=== PATIENT | male | born 1950 | race Caucasian/White ===

== ENCOUNTER 2024-11-16 07:33 | Outpatient (OUT) | payer MEDICARE, SELFPAY ==
--- NOTE | 2024-11-16 07:51 | ECG_ITS ---
[facility] Test Date: 2024-11-16 Pat Name: JUAN AYALA Department: Room: - Gender: Male [place]: : 1950 Requested By: TIMOTHY SMITH Order Number: [id number] Reading MD: JED MENDOZA Measurements Intervals [place] Rate: 54 P: 33 AR: 252 QRS: -31 QRSD: 154 T: -15 QT: 445 QTc: 423 Interpretive Statements SINUS BRADYCARDIA WITH FIRST DEGREE AV BLOCK WITH SINUS ARRHYTHMIA MARKED LEFT AXIS DEVIATION [QRS AXIS < -30] RIGHT BUNDLE BRANCH BLOCK [120+ ms QRS DURATION, UPRIGHT V1, 40+ ms S IN I/aVL/V4/V5/V6] No previous ECG available for comparison Electronically Signed On 11-16-2024 16:01:30 EDT by JED MENDOZA
--- NOTE | 2024-11-16 08:50 | PM.PRESUREVA ---
History of Present Illness History of Present Illness Chief complaint: Right Kidney Stone Narrative: Patient presents for presurgical testing. Please see HPI from Dr. Gaitan dated November 14, 2024. Review of Systems ROS Narrative Please see ROS from Dr. Gaitan dated November 14, 2024. [facility] Medical History (Updated 11/16/24 @ 08:38 by Breanne Ray NP) MILDRED on CPAP ?G47.33 - Obstructive sleep apnea (adult) (pediatric) (ICD-10) Low iron ?E61.1 - Iron deficiency (ICD-10) Anemia ?D64.9 - Anemia, unspecified (ICD-10) Sleep apnea ?G47.30 - Sleep apnea, unspecified (ICD-10) Hypothyroidism ?E03.9 - Hypothyroidism, unspecified (ICD-10) H/O reduction of nasal fracture ?Z98.890 - Other specified postprocedural states (ICD-10) ?Z87.81 - Personal history of (healed) traumatic fracture (ICD-10) Nasal fracture ?S02.2XXA - Fracture of nasal bones, initial encounter for closed fracture (ICD-10) Thyroid disease ?E07.9 - Disorder of thyroid, unspecified (ICD-10) Hypertension ?I10 - Essential (primary) hypertension (ICD-10) Hyperlipidemia ?E78.5 - Hyperlipidemia, unspecified (ICD-10) Prostate cancer ?C61 - Malignant neoplasm of prostate (ICD-10) Diabetes ?E11.9 - Type 2 diabetes mellitus without complications (ICD-10) BPH with obstruction/lower urinary tract symptoms ?N40.1 - Benign prostatic hyperplasia with lower urinary tract symptoms (ICD-10) ?N13.8 - Other obstructive and reflux uropathy (ICD-10) Right kidney stone ?N20.0 - Calculus of kidney (ICD-10) Surgical History (Updated 11/16/24 @ 08:38 by Breanne Ray NP) History of colonoscopy ?Z98.890 - Other specified postprocedural states (ICD-10) History of tonsillectomy ?Z90.89 - Acquired absence of other organs (ICD-10) H/O inguinal hernia repair ?Z98.890 - Other specified postprocedural states (ICD-10) ?Z87.19 - Personal history of other diseases of the digestive system (ICD-10) H/O prostatectomy ?Z90.79 - Acquired absence of other genital organ(s) (ICD-10) H/O lithotripsy ?Z98.890 - Other specified postprocedural states (ICD-10) H/O cystoscopy ?Z98.890 - Other specified postprocedural states (ICD-10) Family History (Updated 11/16/24 @ 08:34 by Breanne Ray NP) Other Family history of cancer Family history of diabetes mellitus Family history of heart disease Family history of hypertension Family history of myocardial infarction Social History (Updated 11/16/24 @ 08:48 by Breanne Ray NP) Within the past year, how often did you have a drink containing alcohol: never Score interpretation: A score less than 4 is consistent with normal alcohol consumption. Smoking status: Never smoker Non-prescribed substance use: denies use Previous occupational history: Retired Highest level of school completed/degree received: Bachelor's degree Meds Home Medications and Allergies Home Medications ?Medication ?Instructions ?Recorded ?Confirmed ?Type amlodipine 5 mg tablet 5 mg PO DAILY 11/16/24 11/16/24 History cholecalciferol (vit D3) 137.5 mcg 1 tab PO DAILY 11/16/24 11/16/24 History (5,500 unit)-vit K2 200 mcg tablet (DosoKap) hydrochlorothiazide 12.5 mg capsule 12.5 mg PO DAILY 11/16/24 11/16/24 History levothyroxine 75 mcg tablet 75 mcg PO DAILY 11/16/24 11/16/24 History (Synthroid) potassium citrate 15 mEq (1,620 1,620 mg PO BID 11/16/24 11/16/24 History mg) tablet,extended release tirzepatide 7.5 mg/0.5 mL 7.5 mg subcut QWEEK 11/16/24 11/16/24 History subcutaneous pen injector (Mounjaro) vitamin B complex 1 tab PO DAILY 11/16/24 11/16/24 History Allergies Allergy/AdvReac Type Severity Reaction Status Date / Time Sulfa (Sulfonamide Allergy Unknown Verified 11/16/24 08:30 Antibiotics) Exam Narrative Exam Narrative: Constitutional: Awake, alert, comfortable, well-appearing, nontoxic, interactive, vital signs as charted Head: Normocephalic, atraumatic Neck: Supple, normal appearance, normal range of motion, no meningeal signs, no lymphadenopathy Respiratory: No respiratory distress, breath sounds clear Cardiovascular: Regular rate and rhythm, strong and regular heart tones Abdomen: Nontender, normal bowel sounds, soft, no CVA tenderness Musculoskeletal: Normal gait, no swelling or edema Skin: No rashes or induration, no lesions, only visible skin inspected Neuro: No neurological deficits, normal sensation Psychiatric: Oriented ?3, normal affect Assessment and Plan Assessment and Plan (1) Right kidney stone: Plan Right ESWL scheduled with Dr. Gaitan November 24, 2024.
[2024-11-16 09:03] LABS: Hematocrit 41.7 % (42.0-54.0); Hemoglobin 15.6 g/dL (14.0-18.0); Immature Granulocytes Abs Auto 0.01 10^3/uL (0.00-0.03); Immature Granulocytes Pct Auto 0.2 % (0.0-0.5); Lymphocytes Absolute Auto 1.3 10^3/uL (1.2-3.8); Mean Corpuscular HGB Conc 37.4 g/dL (29.9-35.2); Mean Corpuscular Hemoglobin 35.0 pg (25.9-34.0); Mean Corpuscular Volume 93.5 fL (80.0-94.0); Platelet Count 104 10^3/uL (150-450); Red Blood Count 4.46 10^6/uL (4.70-6.10); White Blood Count 4.5 10^3/uL (4.0-11.0)
[2024-11-16 09:12] LABS: Anion Gap 13.7; Blood Urea Nitrogen 16.0 mg/dL (7.0-18.0); Calcium 9.5 mg/dL (8.5-10.1); Carbon Dioxide 26.9 mmol/L (21.0-32.0); Chloride 101 mmol/L (98-107); Estimated GFR (African America >60 (>=60 mL/min/1.73m^2); Estimated GFR (Non-African Ame >60 (>=60 mL/min/1.73m^2); Glucose 115 mg/dL (74-106); Potassium 3.6 mmol/L (3.5-5.1); Sodium 138 mmol/L (136-145)
[2024-11-16 09:20] LABS: INR 1.03; Partial Thromboplastin Time 28.8 sec (22.3-36.2); Prothrombin Time 10.9 sec (9.0-11.6)
== END 2024-11-16 07:34 | disposition home or self-care (01) ==
LOC: PST 07:34
PROVIDERS: Family Provider Family Medicine; Visit Provider Urology
DX: Z01.810 Encounter for preprocedural cardiovascular examination (principal); Z01.812 Encounter for preprocedural laboratory examination; Z01.818 Encounter for other preprocedural examination; N20.0 Calculus of kidney
CPT/HCPCS: 80048; 85025; 85610; 85730; 93005; G0463

== ENCOUNTER 2024-12-01 09:29 | Day surgery (SDC) | payer MEDICARE, SELFPAY ==
[2024-11-16 08:45] VITALS: BP 145/86; PULSE 65; TEMP 36.5; O2SAT 95; BMI 34.2
--- OUTSIDE RECORDS SUMMARY | 2024-11-28 16:00 | XMS_ITS | Encounter Summary ---
Author Organization [facility] Address [address] [place] [address] Care Team Providers Care Tool Specialist Name Role Phone Artur Gaitan MD Unavailable [phone] Source Comments In the event this information is protected by the Federal Confidentiality of Alcohol and Drug AbusePatient Records regulations: The Federal rules restrict any use of the information to criminally investigate or prosecute any alcohol or drug abuse patient.[facility] Encounter Details Date Type Department Care Team (Latest Contact Info) Description 11/28/2024 4:00 PM EDT Visit (SP) Office Hematology/Oncolog y [facility] [place] [address] Freddy Felipe MD [address] [place] [address] Thrombocytopenia (Primary Dx) Social History Tobacco Use Types Packs/Day Years Used Date Smoking Tobacco: Never Assessed Area Deprivation Index Answer Date Frank rded National Score (1-100), lower number is lower ri sk 63 11/28/2024 State Score (1-10), lower number is lower risk 4 11/28/2024 Data from: https://www.neighborhoodatlas.medicine.[facility].edu/. Last address used for calculation [address] 11/28/2024 Sex and Gender Information Value Date Recorded Sex Assigned at Not on file Legal Sex Male 3:34 PM EDT Gender Identity Not on file Sexual Orientation Not on file documented as of this encounter Last Filed Vital Signs Vital Sign Reading Time Taken Comments Blood Pressure 176/88 11/28/2024 3:37 PM EDT Pulse 64 11/28/2024 3:37 PM EDT Temperature 36.5 C (97.7 F) 11/28/2024 3:37 PM EDT Respiratory Rate 16 11/28/2024 3:37 PM EDT Oxygen Saturation 97% 11/28/2024 3:37 PM EDT Inhaled Oxygen Concentration - - Weight 96.4 kg (212 lb 8.4 oz) 11/28/2024 3:37 P M EDT Height - - Body Mass Index - - documented in this encounter Patient Instructions * Patient Instructions* Freddy Felipe MD - 11/28/2024 4:20 PM EDT Ordered blood work F/u in 3 months documented in this encounter Progress Notes * Freddy Felipe MD - 11/28/2024 4:00 PM EDT PATIENT NAME: Kamlesh Holman CLINIC NO.: [id number] ATTENDING PHYSICIAN: Freddy Felipe MD DATE OF SERVICE: November 28, [address] Artur Gaitan [address] [facility] [address] thank you for referring Kamlesh Holman for an opinion regarding Thrombocytopenia . CHIEF COMPLAINT: Thrombocytopenia HPI: Kamlesh Holman is a 73 year old year old male with PMH of prostate cancer s/p prostatectomy,HTN, DM, hypothyroidism, nephrolithiasis, referred to us for thrombocytopenia. No smoking No alcohol. No bleeding or bruising. Lives at home with . 4 children . Worked as a teacher. Doing well No major complaints. Current Outpatient Medications Medication Sig MOUNJARO 7.5 mg/0.5 mL pen injector INJECT 7.5 MG UNDER THE SKIN ONCE WEEKLY MYRBETRIQ 50 mg Tb24 Take 50 mg by mouth once daily. levothyroxine (SYNTHROID) 75 mcg tablet Take 75 mcg by mouth. PRO FE 180 mg iron cap TAKE 1 CAPSULE BY MOUTH EVERY DAY , INCREASE TO TWICE DAILY IF TOLERATING hydroCHLOROthiazide 12.5 mg tablet Take 12.5 mg by mouth. cyanocobalamin (VITAMIN B-12) 1,000 mcg tab Take 1,000 mcg by mouth. amLODIPine (NORVASC) 5 mg tablet Take 5 mg by mouth. Potassium Citrate-Citric Acid 1,100-334 mg/5 mL solution Take by mouth. cholecalciferol, vitD3,/vit K2 (DOSOQUIN ORAL) Take by mouth. Ascorbic Acid (VITAMIN C) 1,000 mg tablet Take 1,000 mg by mouth once daily. naltrexone 4.5 mg cap Take by mouth. No current facility-administered medications for this visit. ALLERGIES Not on File No past medical history on file. No past surgical history on file. No family history on file. SOCIAL HISTORY[1] REVIEW OF SYSTEMS GENERAL: No weight loss, malaise or fevers. No night sweats. HEENT: Negative for headaches, No changes in hearing or vision, no nose bleeds or other nasal problems. RESPIRATORY: Negative for cough, wheezing and shortness of breath CARDIOVASCULAR: Negative for chest pain, leg swelling and palpitations GI: Negative for abdominal discomfort, blood in stools or black stools and change in bowel habits : Negative for dysuria, frequency and incontinence MUSCULOSKELETAL: Negative for joint pain or swelling, back pain, and muscle pain. SKIN: Negative for lesions, rash, and itching. HEMATOLOGY/LYMPHOLOGY Negative for prolonged bleeding, bruising easily, and swollen nodes. NEURO: Negative for numbness or tingling of hands/feet. No weakness. PHYSICAL EXAMINATION: BP 176/88 Pulse 64 Temp 36.5 ??C (97.7 ??F) (Temporal) Resp 16 Wt 96.4 kg (212 lb 8.4 oz) SpO2 97% There were no vitals taken for this visit. No data found for this vital: Wt General appearance:ECOG PERFORMANCE STATUS: 0- Fully active, able to carry on all pre-disease performance w/o restriction. Patient in NAD. Skin: Skin color, texture, turgor normal. No rashes or lesions. Eyes: Anicteric sclera. Pupils are equally round and reactive to light. Extraocular movements are intact. Breast: No palpable breast masses. No nipple change or discharge. Lymph Nodes: No cervical, supraclavicular, axillary or inguinal adenopathy. Oropharynx: Lips, mucosa, and tongue normal. Back: No pain to percussion. Negative SLR test Lungs clear to auscultation, No wheezing or rhonchi Heart: RRR without murmur, gallop, or rubs. Abdomen soft, non-tender. No masses, organomegaly Extremities: No deformities. No edema Neuro: Gait and speech normal. Reflexes normal and symmetric. Muscular strength intact. Sensation grossly intact. Rectal: Deferred : Deferred LABS: No results found for: GLUC , K , NA , CHLOR , CO2 , CREAT , BUN , ANION , CA , TPROT , ALB , TBILI , ALKPHOS , AST , ALT No results found for: WBC , RBC , HB , HCT , MCV , MCH , MCHC , RDWCV , PLT , MPV , NEUT , ABSNEUT , LYMPHP , ABSLYMPH , MONOP , ABSMONO , EOSINP , ABSEOSIN , BASOP , ABSBASO PATH: IMAGING: ASSESSMENT AND PLAN: Kamlesh Holman is a 73 year old year old male referred to us for thrombocytopenia. H/o prostate cancer s/p prostatectomy, HTN, DM, hypothyroidism, nephrolithiasis. PLAN: 1. Thrombocytopenia - ICD9: 287.5, ICD10: D69.6 - I explained to him in detail the various etiologies for thrombocytopenia including vitamin deficiencies, autoimmune disorders and bone marrow disorders including ITP. - Recent platelet counts are 104k. 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 - All his questions answered in detail. - F/u in [address] Artur Gaitan [address] [facility] [address] thank you for allowing me to participate in Kamlesh Holman care, if there are any questions or concerns please do not hesitate to contact me at the number below. I spent a total of 45 minutes on the date of the service which included preparing to see the patient, [id number] patient care, completing clinical documentation, obtaining and/or reviewing separately obtained history, performing a medically appropriate examination, counseling and educating the pat ient/family/caregiver, ordering medications, tests, or procedures, communicating with other HCPs (not separately reported), independently interpreting results (not separately reported), communicatingresults to the patient/family/caregiver, and care coordination (not separately reported). Freddy Felipe MD. Hematology/Medical Oncology [facility] [place] [address] [phone] CC: [1] documented in this encounter Plan of Treatment Upcoming Encounters Date Type Department Care Team (Latest Contact Info) Description 02/27/2025 8:45 AM EST Office Visit [facility] [address] [place] [address] [place] [address] 3 month follow up with lab 02/27/2025 9:00 AM EST Visit (SP) Office Hematology/Oncology [address] [place] [address] [place] [address] Freddy Felipe MD [address] [place] [address] [place] [address] 3 month follow up with lab Scheduled Orders Name Type Priority Associated Diagnoses Orde r Schedule COMPLETE BLOOD COUNT AND DIFFERENTIAL Lab Routine Thrombocytopenia Expected: 11/28/2024, Expires: 02/27/2025 COMPREHENSIVE METABOLIC PANEL Lab Routine Thrombocytopenia Expected: 11/28/2024, Expires: 02/27/2025 VITAMIN B12 Lab Routine Thrombocytopenia Expected: 11/28/2024, Expires: 02/27/2025 FOLATE, SERUM Lab Routine Thrombocytopenia Expected: 11/28/2024, Expires: 02/27/2025 COPPER BLOOD Lab Routine Thrombocytopenia Expected: 11/28/2024, Expires: 02/27/2025 ZINC BLD Lab Routine Thrombocytopenia Expected: 11/28/2024, Expires: 02/27/2025 ELIANA BLOOD Lab Routine Thrombocytopenia Expected: 11/28/2024, Expires: 02/27/2025 FERRITIN Lab Routine Thrombocytopenia Expected: 11/28/2024, Expires: 02/27/2025 documented as of this encounter Visit Diagnoses Diagnosis Thrombocytopenia- Primary Thrombocytopenia, unspecified documented in this encounter Care Teams Tool Specialist Relationship Specialty Start Date End Date Artur Gaitan MD [address] [place] [address] Urology 11/25/24 documented as of this encounter
[2024-12-01] VITALS (15 sets, daily range): BP systolic 150–186; BP diastolic 73–102; PULSE 57–69; TEMP 36.2–36.3; O2SAT 95–97; BMI 33.7
--- NOTE | 2024-12-01 | FL_ITS ---
The [address] [address] Patient Name: JUAN AYALA MRN: [id number] date: 1950 Sex: M Assigned Patient Location: SURGOUT Current Patient Location: Accession/Order Number: [id number] Exam Date: 12/01/2024 12:53 Report Date: 12/03/2024 12:06 At the request of: TIMOTHY SMITH MD Procedure: FL fluoroscopy <1hr NON-READ Fluoroscopic assessment for right ureteral stent placement HISTORY: Right ureteral stent placement 1 image was obtained. Cumulative Air Kerma in mGy: 20 mGy Right ureteral stent in place. FL/FL fluoroscopy <1hr NON-READ IMPRESSION: Right ureteral stent in place Impression dictated by: Mejia Soto M.D. 12/03/2024 12:06 PM Dictation Location: [place] [address] Electronically authenticated by: [id number] Y Date: 12/03/2024 12:06
--- OUTSIDE RECORDS SUMMARY | 2024-12-01 09:32 | XMS_ITS | Clinical Summary ---
Author Organization [facility] Address [address] [place] [address] Care Team Providers Care Housekeeper/Laundry Assistant Name Role Phone Unavailable Primary Care Provider Unavailabl e Social History Tobacco Use Types Packs/Day Years Used Date Smoking Tobacco: Never Assessed Sex and Gender Information Value Date Recorded Sex Assigned at Not on file Legal Sex Male 11:48 PM EDT Gender Identity Not on file Sexual Orientation Not on file Last Filed Vital Signs Vital Sign Reading Time Taken Comments Blood Pressure 152/90 03/27/2022 12:00 PM EST Pulse - - Temperature - - Respiratory Rate - - Oxygen Saturation - - Inhaled Oxygen Concentration - - Weight 109 kg (239 lb 3.2 oz) 03/27/2022 12:00 P M EST Height 167.6 cm (5' 6 ) 03/27/2022 12:00 PM EST Body Mass Index 38.61 03/27/2022 12:00 PM EST Plan of Treatment Not on file Insurance [employer] MED[employer]ARE [employer]VANTAGE
--- OUTSIDE RECORDS SUMMARY | 2024-12-01 09:33 | XMS_ITS | Encounter Summary ---
Author Organization [facility] Address [address] [place] [address] Care Team Providers Care Environmental Remediation Engineer Name Role Phone Artur Gaitan MD Unavailable [phone] Source Comments In the event this information is protected by the Federal Confidentiality of Alcohol and Drug AbusePatient Records regulations: The Federal rules restrict any use of the information to criminally investigate or prosecute any alcohol or drug abuse patient.[facility] Encounter Details Date Type Department Care Team (Latest Contact Info) Description 11/28/2024 Travel Social History Tobacco Use Types Packs/Day Years Used Date Smoking Tobacco: Never Assessed Area Deprivation Index Answer Date Frank rded National Score (1-100), lower number is lower ri sk 63 11/28/2024 State Score (1-10), lower number is lower risk 4 11/28/2024 Data from: https://www.neighborhoodatlas.medicine.[facility].edu/. Last address used for calculation [address] 11/28/2024 Sex and Gender Information Value Date Recorded Sex Assigned at Not on file Legal Sex Male 3:34 PM EDT Gender Identity Not on file Sexual Orientation Not on file documented as of this encounter Plan of Treatment Upcoming Encounters Date Type Department Care Team (Latest Contact Info) Description 02/27/2025 8:45 AM EST Office Visit [facility] [address] [place] [address] [place] [address] 3 month follow up with lab 02/27/2025 9:00 AM EST Visit (SP) Office Hematology/Oncology [address] [place] [address] [place] [address] Freddy Felipe MD [address] [place] [address] 3 month follow up with lab documented as of this encounter Visit Diagnoses Not on filedocumented in this encounter Care Teams Environmental Remediation Engineer Relationship Specialty Start Date End Date Artur Gaitan MD [address] [place] [address] Urology 11/25/24 documented as of this encounter
--- OUTSIDE RECORDS SUMMARY | 2024-12-01 09:33 | XMS_ITS | Encounter Summary ---
Author Organization [facility] tem Address [id number] [address] [place] [address] Care Team Providers Care Tool Repair Technician Name Role Phone Anthony Raquel TURN DOWN MAN-METEOROLOGICAL EQUIPMENT REPAIRER Primary Care Provi louisa Encounter Details Date Type Department Care Team (Latest Contact Info) Description 11/30/2024 Travel Social History Tobacco Use Types Packs/Day Years Used Date Smoking Tobacco: Never Assessed Childcare Answer Date Recorded Childcare Unknown 08/30/2018 Employment Answer Date Recorded Employment Unknown 08/30/2018 Hunger Screening Answer Date Recorded Within the past 12 months we worried whether our food would run out before we got money to buy more. Never True 06/24/2024 Within the past 12 months th e food we bought just didn't last and we didn't have money to get more. Never True 06/24/2024 Sex and Gender Information Value Date Recorded Sex Assigned at Not on file Legal Sex Male 4:08 PM EDT Gender Identity Not on file Sexual Orientation Not on file documented as of this encounter Plan of Treatment Not on file documented as of this encounter Visit Diagnoses Not on filedocumented in this encounter Care Teams Tool Repair Technician Relationship Specialty Start Date End Date Raquel Cruz APRN-CNP [address] [place] [address] PCP - General Family Medicine 06/24/24 documented as of this encounter
--- OUTSIDE RECORDS SUMMARY | 2024-12-01 09:33 | XMS_ITS | Clinical Summary ---
Author Organization [facility] Address [address] [place] [address] Phone Care Team Providers Care Packaging Technician Name Role Phone Unavailable Primary Care Provider Unavailabl e Social History Tobacco Use Types Packs/Day Years Used Date Smoking Tobacco: Never Assessed Sex and Gender Information Value Date Recorded Sex Assigned at Not on file Legal Sex Male 11:34 PM EST Gender Identity Not on file Sexual Orientation Not on file Plan of Treatment Not on file
--- OUTSIDE RECORDS SUMMARY | 2024-12-01 09:33 | XMS_ITS | Clinical Summary ---
Author Organization [facility] tem Address [id number] [address] [place] [address] Care Team Providers Care Lacquer Polisher Name Role Phone Raquel Cruz AUTOMOTIVE HEAVY MECHANIC-RADIO NEWS ANCHOR Primary Care Provi louisa Allergies Active Allergy Reactions Criticality Noted Date Comments Sulfa (Sulfonamide Antibiotics) 06/2024 Medications levothyroxine (SYNTHROID, LEVOTHROID) 75 MCG tablet Take 1 tablet (75 mcg total) by mouth in the morning. Active potassium citrate-citric acid (POLYCITRA) 1,100-334 mg/5 mL solution Take by mouth 3 (three) times a day with meals. Active amLODIPine (NORVASC) 5 mg tablet Take 1 tablet (5 mg total) by mouth in the morning. Active hydroCHLOROthiaz kamar (HYDRODIURIL) 12.5 mg tablet Take 1 tablet (12.5 mg total) by mouth daily. Active cyanocobalamin (vitamin B-12) 1000 MCG tablet Take 1 tablet (1,000 mcg total) by mouth in the morning. Active tirzepatide (MOUNJARO) 2.5 mg/0.5 mL pen injector Inject under the skin. Active Encounters Date Type Department Care Team Description 11/30/2024 Travel 11/08/2024 7:10 AM EDT - 11/08/2024 11:59 PM EDT Hospital Encounter [facility] - Radiology [address] [place] [id number] Kidney stone Discharge Disposition: Home 11/08/2024 7:00 AM EDT - 11/08/2024 7:09 AM EDT Hospital Encounter [facility] - Ultrasound [address] [place] [phone] Kidney stone Discharge Disposition: Home 11/08/2024 Travel from Last 3 Months Social History Tobacco Use Types Packs/Day Years [...] Sign Reading Time Taken Comments Blood Pressure 137/100 06/24/2024 11:15 AM EDT Pulse 72 06/24/2024 11:15 AM EDT Temperature 36.6 C (97.9 F) 06/24/2024 10:44 AM EDT Respiratory Rate 20 06/24/2024 11:15 AM EDT Oxygen Saturation 95% 06/24/2024 11:15 AM EDT Inhaled Oxygen Concentration - - Weight 101.6 kg (224 lb) 06/24/2024 10:44 AM EDT Height 167.6 cm (5' 6 ) 06/24/2024 10:44 AM EDT Body Mass Index 36.15 06/24/2024 10:44 AM EDT Plan of Treatment Health Maintenance Due Date Last Done Comments Depression Screening 1962 Tobacco Screening 1962 Adult BMI Follow Up Plan 1970 Fall Risk Screening 2017 COVID-19 Vaccine (2024-2 6 season) 2024 01/29/2022, 02/27/2021, 06/13/2020, Additional history exists Influenza Vaccine 11/21/2024 10/29/2023, , 11/05/2021, Additional history exists Adult BMI Screening 06/24/2025 06/24/2024 DTaP,Tdap and Td Vaccines (2 - Td or Tdap) 09/12/2029 09/13/2019 Zoster (Shingles) Vaccine Completed 12/14/2019, Medical Devices Not on file Procedures Procedure Name Priority Date/Time Associated Diagnosis Comments CBC WITH AUTO DIFFERENTIAL Routine 11/30/2024 2:16 PM EDT Thrombocytopenia, unspecified COMPREHENSIVE METABOLIC PANEL Routine 11/30/2024 2:16 PM EDT Thrombocytopenia, unspecified VITAMIN B12 Routine 11/30/2024 2:16 PM EDT Thrombocytopenia, unspecified FOLATE Routine 11/30/2024 2:16 PM EDT Thrombocytopenia, unspecified ELIANA SCREEN W/ REFLEX Routine 11/30/2024 2:16 PM EDT Thrombocytopenia, unspecified FERRITIN Routine 11/30/2024 2:16 PM EDT Thrombocytopenia, unspecified XR ABDOMEN AP 1 VW Routine 11/08/2024 7: 43 AM EDT Kidney stone US RETROPERITONEAL LIMITED Routine 11/08/2024 7:20 AM EDT Kidney stone from Last 3 Months Results * (ABNORMAL) CBC auto differential (11/30/2024 2:16 PM EDT) WBC 4.8 4 - 11 x10E9/L 11/30/2024 5:59 PM EDT [facility] RBC Count 4.62 4.1 - 5.7 X10E12/L 11/30/2024 5:59 PM EDT [facility] Hemoglobin 16.0 13 - 17 g/dL 11/30/2024 5:59 PM EDT [facility] Hematocrit 45.6 39 - 50 % 11/30/2024 5:59 PM EDT [facility] MCV 99 80 - 100 fL 11/30/2024 5:59 PM EDT [facility] MCH 34.5(H) 27 - 34 pg 11/30/2024 5:59 PM EDT [facility] MCHC 35.0 32 - 36 g/dL 11/30/2024 5:59 PM EDT [facility] RDW 13.5 11.5 - 15 % 11/30/2024 5:59 PM EDT [facility] Platelet Count 112(L) 150 - 450 X10E9/L 11/30/2024 5:59 PM EDT [facility] MPV 9.2 7 - 12 fL 11/30/2024 5:59 PM EDT [facility] Neutrophils % 46.5 % 11/30/2024 5:59 PM EDT [facility] Lymphocytes % 36.5 % 11/30/2024 5:59 PM EDT [facility] Monocytes % 13.3 % 11/30/2024 5:59 PM EDT [facility] Eosinophils % 2.9 % 11/30/2024 5:59 PM EDT [facility] Basophils % 0.8 % 11/30/2024 5:59 PM EDT [facility] Neutrophils Absolute (A) 2.2 1.5 - 6.6 10*3/uL 11/30/2024 5:59 PM EDT [facility] Lymphocytes Absolute 1.8 1.0 - 3.5 10*3/uL 11/30/2024 5:59 PM EDT [facility] Monocytes Absolute 0.6 0.0 - 0.9 10*3/uL 11/30/2024 5:59 PM EDT [facility] Eosinophils Absolute 0.1 0.0 - 0.4 10*3/uL 11/30/2024 5:59 PM EDT [facility] Basophils Absolute 0.0 0.0 - 0.2 10*3/uL 11/30/2024 5:59 PM EDT [facility] Differential Type AUTOMATED DIFFERENTIAL 11/30/2024 5:59 PM EDT [facility] Blood Venous blood / Unknown Venipuncture / Unknown 11/30/2024 2:16 PM EDT 11/30/2024 2:19 PM EDT Freddy Felipe MD LAB BLOOD ORDERABLES Rosey l Result [facility] [address] [place] [address], [place] [phone] * ELIANA Screen w/ Reflex (11/30/2024 2:16 PM EDT) ELIANA SCREEN W/REFLEX Negative Negative 11/30/2024 8:54 PM EDT [facility] Blood Venous blood / Unknown Venipuncture / Unknown 11/30/2024 2:16 PM EDT 11/30/2024 2:19 PM EDT Narrative [facility] - 11/30/2024 8:54 PM EDT Testing performed using multiplex flow immunoassay. Eleven difference antigens associated with systemic autoimmunie diseases (dsDNA, Sm, Sm/PARAKEET RAISER, PARAKEET RAISER, Chromatin, SSA, SSB, Jennifer-1, Sc170, Ribo P, Centromere B) are included in this sreening tests. Freddy Felipe MD LAB BLOOD ORDERABLES Rosey l Result Performing Organization Address City/[facility]/ZIP Co de Phone Number [facility] [address] [place] [address], [place] [phone] * Folate (11/30/2024 2:16 PM EDT) Pathologist [facility] FOLIC ACID 6.5 >5.8 ng/mL 11/30/2024 7:37 PM EDT [facility] Blood Venous blood / Unknown Venipuncture / Unknown 11/30/2024 2:16 PM EDT 11/30/2024 2:19 PM EDT Freddy Felipe MD LAB BLOOD ORDERABLES Rosey l Result [facility] [address] [place] [address], [place] [phone] * Ferritin (11/30/2024 2:16 PM EDT) FERRITIN 194 24 - 336 ng/mL 11/30/2024 7:33 PM EDT [facility] Blood Venous blood / Unknown Venipuncture / Unknown 11/30/2024 2:16 PM EDT 11/30/2024 2:19 PM EDT Freddy Felipe MD LAB BLOOD ORDERABLES Rosey l Result [facility] [address] [place] [address], * (ABNORMAL) Vitamin B12 (11/30/2024 2:16 PM EDT) Pathologist [facility] VITAMIN B12 1,202(H) 180 - 914 pg/mL 11/30/2024 7:38 PM EDT [facility] Blood Venous blood / Unknown Venipuncture / Unknown 11/30/2024 2:16 PM EDT 11/30/2024 2:19 PM EDT Freddy Felipe MD LAB BLOOD ORDERABLES Rosey l Result [facility] [address] [place] [address], * (ABNORMAL) Comprehensive metabolic panel (11/30/2024 2:16 PM EDT) SODIUM 140 134 - 146 mmol/L 11/30/2024 7:22 PM EDT [facility] POTASSIUM 3.4(L) 3.5 - 5.0 mmol/L 11/30/2024 7:22 PM EDT [facility] CHLORIDE 101 98 - 109 mmol/L 11/30/2024 7:22 PM EDT [facility] CARBON DIOXIDE 27 22 - 32 mmol/L 11/30/2024 7:22 PM EDT [facility] ANION GAP 12 5 - 15 mmol/L 11/30/2024 7:22 PM T [facility] BLOOD UREA NITROGEN 17 5 - 27 mg/dL 11/30/2024 7:22 PM [facility] CREATININE 1.16 0.60 - 1.30 mg/dL 11/30/2024 7:22 PM T [facility] Comment:METHOD TRACEABLE TO [facility] STANDARD GLUCOSE 103(H) 65 - 99 mg/dL 11/30/2024 7:22 PM T [facility] CALCIUM 9.4 8.5 - 10.5 mg/dL 11/30/2024 7:22 PM [facility] TOTAL PROTEIN 7.5 6.0 - 8.0 g/dL 11/30/2024 7:22 PM [facility] ALBUMIN 4.5 3.2 - 5.3 g/dL 11/30/2024 7:22 PM [facility] ALKALINE PHOSPHATASE 75 39 - 130 U/L 11/30/2024 7:22 PM T [facility] AST 38 <=41 U/L 11/30/2024 7:22 PM [facility] ALT 44(H) <=40 U/L 11/30/2024 7:22 PM [facility] BILIRUBIN,TOTAL 0.7 0.3 - 1.2 mg/dL 11/30/2024 7:22 PM [facility] EGFR Non-Race Dependent 67 >=60 ml/min/1.7 3sq.m 11/30/2024 7:22 PM [facility] Comment: Reported eGFR is based on the CKD-EPI 2020 equation that does not use a race coefficient. Blood Venous blood / Unknown Venipuncture / Unknown 11/30/2024 2:16 PM EDT 11/30/2024 2:19 PM EDT us Freddy Felipe MD LAB BLOOD ORDERABLES Rosey linda Result [facility] [address] [place] [address], [place] [phone] * X-ray abdomen ap 1 view (11/08/2024 7:43 AM EDT) Anatomical Region Laterality Modality Body, Abdomen N/A Computed Radiogr aphy 11/08/2024 7:53 AM EDT Narrative 11/08/2024 9:45 AM EDT XR ABDOMEN AP 1 VW HISTORY: Kidney stone, renal calculi screening and follow up COMPARISON: 08/10/2023 FINDINGS: 2 images of the AP abdomen obtained. Nonobstructive bowel gas pattern and moderate physiological stool burden. Overlying bowel contents obscures visualization of kidneys. Multiple small calcifications in the right kidney. No calcifications visualized over the left kidney or bilateral ureters. Degenerative changes in the lumbar spine and SI joints. Surgical clips in the pelvis. IMPRESSION: Multiple small calcifications in the right kidney. Approved by Mel Lowry MD on 11/08/2024 7:53 AM Letitia Arevalo MD have personally reviewed the image(s) and agree with and/or edited the report Finalized by Letitia Hanna MD on 11/08/2024 9:45 AM Procedure Note Letitia Hanna MD - 11/08/2024 XR ABDOMEN AP 1 VW HISTORY: Kidney stone, renal calculi screening and follow up COMPARISON: 08/10/2023 FINDINGS: 2 images of the AP abdomen obtained. Nonobstructive bowel gas pattern and moderate physiological stool burden.Overlying bowel contents obscures visualization of kidneys. Multiplesmall calcifications in the right kidney. No calcifications visualizedover the left kidney or bilateral ureters. Degenerative changes in the lumbar spine and SI joints. Surgical clips inthe pelvis. IMPRESSION: Multiple small calcifications in the right kidney. Approved by Mel Lowry MD on 11/08/2024 7:53 AM Letitia Arevalo MD have personally reviewed the image(s) and agree withand/or edited the report Finalized by Letitia Hanna MD on 11/08/2024 9:45 AM us Artur Gaitan MD [facility] DIAGNOSTIC IMAGING ORDER HARLAN Final Result * Ultrasound retroperitoneal limited (11/08/2024 7:20 AM EDT) Anatomical Region Laterality Modality Body Ultrasound 11/08/2024 10:1 6 PM EDT Narrative 11/08/2024 10:17 PM EDT ULTRASOUND RETROPERITONEUM INDICATION: Renal stones. COMPARISON: None available. FINDINGS: Ultrasound evaluation of the kidneys and bladder was performed. Right kidney: 12.2 cm in maximal length. Renal stones largest 5 mm, no collecting system dilatation. No appreciable renal mass. Left kidney: 12.2 cm in maximal length. No collecting system dilatation, calculi, or contour deforming mass lesion. Bladder: Unremarkable fluid filled bladder. Bladder volume: 41 mL. Ureteral jets not seen. IMPRESSION: 1. Small nonobstructive right renal stones. No collecting system dilatation. Finalized by Steffen Hudson MD on 11/08/2024 10:17 PM Procedure Note Steffen Hudson MD - 11/08/2024 ULTRASOUND RETROPERITONEUM INDICATION: Renal stones. COMPARISON: None available. FINDINGS: Ultrasound evaluation of the kidneys and bladder wasperformed. Right kidney: 12.2 cm in maximal length. Renal stones largest 5 mm, nocollecting system dilatation. No appreciable renal mass. Left kidney: 12.2 cm in maximal length. No collecting system dilatation,calculi, or contour deforming mass lesion. Bladder: Unremarkable fluid filled bladder. Bladder volume: 41 mL.Ureteral jets not seen. IMPRESSION: 1. Small nonobstructive right renal stones. No collecting systemdilatation. Finalized by Steffen Hudson MD on 11/08/2024 10:17 PM Artur Gaitan MD [facility] US ORDERABLES Final Resu lt from Last 3 Months Insurance [employer] MEDICARE Care Teams Lacquer Polisher Relationship Specialty Start Date End Date Raquel Cruz APRN-DAWSON [address] [place] [address] PCP - General Family Medicine 06/24/24
--- OUTSIDE RECORDS SUMMARY | 2024-12-01 09:33 | XMS_ITS | Clinical Summary ---
Author Organization [facility] Address [address] [place] [address] Care Team Providers Care Concrete Saw Operator Name Role Phone Artur Gaitan MD Unavailable [phone] Medications MOUNJARO 7.5 mg/0.5 mL pen injector INJECT 7.5 MG UNDER THE SKIN ONCE WEEKLY Active MYRBETRIQ 50 mg Tb24 Take 50 mg by mouth once daily. Active levothyroxine (SYNTHROID) 75 mcg tablet Take 75 mcg by mouth. Active PRO FE 180 mg iron cap TAKE 1 CAPSULE BY MOUTH EVERY DAY , INCREASE TO TWICE DAILY IF TOLERATING Active hydroCHLOROthia zide 12.5 mg tablet Take 12.5 mg by mouth. Active cyanocobalamin (VITAMIN B-12) 1,000 mcg tab Take 1,000 mcg by mouth. Active amLODIPine (NORVASC) 5 mg tablet Take 5 mg by mouth. Active Potassium Citrate-Citric Acid 1,100-334 mg/5 mL solution Take by mouth. Activ e cholecalciferol , vitD3,/vit K2 (DOSOQUIN ORAL) Take by mouth. Active Ascorbic Acid (VITAMIN C) 1,000 mg tablet Take 1,000 mg by mouth once daily. Active naltrexone 4.5 mg cap Take by mouth. Activ e Encounters Date Type Department Care Team Description 11/28/2024 4:00 PM EDT Visit (SP) Office Hematology/Oncology [address] [place] [address] [place] [address] Freddy Felipe MD Thrombocytopenia (Primary Dx) 11/28/2024 Travel from Last 3 Months Social History Tobacco Use Types Packs/Day Years Used Date Smoking Tobacco: Never Assessed Area Deprivation Index Answer Date Frank rded National Score (1-100), lower number is lower ri sk 63 11/28/2024 State Score (1-10), lower number is lower risk 4 11/28/2024 Data from: https://www.neighborhoodatlas.medicine.[facility]/. Last address used for calculation [address] [...] - - Body Mass Index - - Plan of Treatment Upcoming Encounters Date Type Department Care Team (Latest Contact Info) Description 02/27/2025 8:45 AM EST Office Visit [facility] [address] [place] [address] 3 month follow up with lab 02/27/2025 9:00 AM EST Visit (SP) Office Hematology/Oncology [address] [facility] [place] [address] Freddy Felipe MD [address] [place] [address] 3 month follow up with lab Health Maintenance Due Date Last Done Comments Anxiety Screening 1970 Depression Screening 1970 Hepatitis C Screening 1970 Lipid Screening 12/29/1987 CT Colonography 1997 Cologuard (FIT-DNA) 1997 Colonoscopy 1997 Colorectal Cancer Screening 1997 Diabetes Screening 1997 Fecal Occult Blood 1997 Sigmoidoscopy 1997 Advance Directive Discussion 03/23/2024 Medicare Advantage Annual We llness Visit 03/23/2024 Influenza Vaccine (#1) 2024 , 11/20/2022, 11/05/2021, Additional history exists RSV Vaccine (1 - 1-dose 75+ series) 12/29/2027 DTaP,Tdap,Td Vaccine (2 - Td or Tdap) 09/12/2029 09/13/2019 Shingrix Vaccine Completed 12/14/2019, 09/13/2019 Pneumococcal Vaccine: 50+ Completed 11/08/2020, Procedures Procedure Name Priority Date/Time Associated Diagnosis Comments EXTERNAL LAB 11/28/2024 11:07 AM EDT EXTERNAL LAB 11/28/2024 11:07 AM EDT EXTERNAL LAB 11/28/2024 11:07 AM EDT from Last 3 Months Results * EXTERNAL LAB (11/28/2024 11:07 AM EDT) Only the most recent of3 resultswithin the time period is included. External Provider [facility] Final Res ult from Last 3 Months Insurance [employer] MEDICARE Care Teams Concrete Saw Operator Relationship Specialty Start Date End Date Artur Gaitan MD [address] [place] [address] Urology 11/25/24
[2024-12-01 09:41] LABS: Hematocrit 42.8 % (42.0-54.0); Hemoglobin 16.0 g/dL (14.0-18.0); Immature Granulocytes Abs Auto 0.01 10^3/uL (0.00-0.03); Immature Granulocytes Pct Auto 0.2 % (0.0-0.5); Lymphocytes Absolute Auto 1.9 10^3/uL (1.2-3.8); Mean Corpuscular HGB Conc 37.4 g/dL (29.9-35.2); Mean Corpuscular Hemoglobin 35.2 pg (25.9-34.0); Mean Corpuscular Volume 94.3 fL (80.0-94.0); Platelet Count 112 10^3/uL (150-450); Red Blood Count 4.54 10^6/uL (4.70-6.10); White Blood Count 5.2 10^3/uL (4.0-11.0)
[2024-12-01 09:48] LABS: Anion Gap 14.2; Blood Urea Nitrogen 17.0 mg/dL (7.0-18.0); Calcium 9.8 mg/dL (8.5-10.1); Carbon Dioxide 29.0 mmol/L (21.0-32.0); Chloride 101 mmol/L (98-107); Estimated GFR (African America >60 (>=60 mL/min/1.73m^2); Estimated GFR (Non-African Ame >60 (>=60 mL/min/1.73m^2); Glucose 122 mg/dL (74-106); Potassium 4.2 mmol/L (3.5-5.1); Sodium 140 mmol/L (136-145)
[2024-12-01] MEDS: CEFAZOLIN SODIUM 2 GM/50 ML D5W PREMIX IV (12:37)
--- NOTE | 2024-12-01 13:44 | PM.URSON ---
Urology Surgery Operative Note Operative Note Procedure Date: 12/01/24 Time Out Performed: yes Pre-op Diagnosis: Right nephrolithiasis Post-op Diagnosis: same as pre-op Procedures performed: 1. Cystoscopy. 2. Right rigid ureteral dilation. 3. Right ureteroscopy. 4. Right pyeloscopy. 5. Thulium laser lithotripsy of right renal calculi. #6. Placement of 6 Namibian variable length right ureteral stent Anesthesia: NELLY Primary Surgeon: Artur Gaitan Complications: None Estimated blood loss (mL): 5 Findings: 1. Urethral anastomotic stenosis. 2. 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 3. Lower pole right renal calculi x 2 Specimens: None Drains: 6 Namibian variable length right ureteral stent Indications for Procedures: This gentleman has right nephrolithiasis. He now presents for ureteroscopic laser lithotripsy and possible stent placement of right renal calculi. He has signed an informed consent after risks were explained. Detailed description of Procedure: The patient was brought to the operating room and placed on the operating room table in the supine position. SCDs were placed on the lower extremities and turned on and functioning during the entire case. Timeout was done by all parties in the room. We all agreed upon the patient's identification and the planned procedures for this patient. Genn. anesthesia was then administered. The patient was then repositioned into the modified dorsal lithotomy position. All pressure points were satisfactorily padded. Genitalia were sterilely prepped and draped in usual fashion. I started by passing a 22 Namibian Olympus cystoscope per urethra and as I arrived at the anastomotic region he did have some stenosis. The scope was able to pop through and functionally dilate it. Panendoscopy in the bladder revealed no evidence of any tumors stones or lesions. I then passed a Glidewire through the scope and up the right ureter into the kidney. The distal right ureter was dilated with 10 Namibian rigid dilator. The scope was then removed. I then passed a 10/12 Namibian ureteral access sheath over the wire and up to the L5 position. The stylette and wire were then removed. I then passed a flexible ureteroscope through the access sheath and into the ureter. I scoped all the way up the ureter and then into the renal pelvis. I went into the upper mid and lower pole calyces. In the upper pole calyces I found a couple Heladio plaques. In the midpole calyx there was a small stone about 3 to 4 mm. In the lower pole calyx there was a stone that was about 5 mm. I used a 200 Angstrom laser fiber and with the thulium laser on the dusting mode at 7 W I was able to dust both of the lower pole and midpole calculi without difficulty. Upon completion there was no evidence of any formed stone remaining. A wire was passed through the scope into the kidney and the scope and sheath were then removed. Cystoscope was backloaded over the wire and passed into the bladder and then a 6 Namibian variable length stent was slid over the wire up to the right kidney. The wire was removed and there were good curls in the kidney and in the bladder. The bladder was drained of its contents and the scope was then removed. He was then transferred to a [facility] bed and wheeled to PACU in stable condition.
[2024-12-01] MEDS: HYDROMORPHONE HCL 0.5 MG/0.5 ML SYRINGE IV (14:02)
[2024-12-01] MEDS: SOLIFENACIN SUCCINATE 10 MG TABLET PO (14:03)
--- NOTE | 2024-12-01 14:50 | PC.NURSE ---
Dr. Owen stated this patient has had high blood pressure readings throughout the case. Readings have come down some by discharge from phase 1.
--- NOTE | 2024-12-01 14:57 | PC.NURSE ---
Patient was complaining of nausea. Zofran given at 1424. Patient states he has had a slight improvement sipping on water and eating saltine crackers. Little nauseated still but thinking that is he snacks on crackers it will get better. Discharged to phase 2.
--- NOTE | 2024-12-01 15:25 | PC.NURSE ---
Patient denies any nausea at discharge
== END 2024-12-01 15:24 | disposition home or self-care (01) ==
PROVIDERS: Anesthesiology; Family Provider Family Medicine; Visit Provider Urology
PROC: (CPT 52356; principal; 2024-12-01 11:20)
DX: N20.0 Calculus of kidney (principal); E07.9 Disorder of thyroid, unspecified; E78.5 Hyperlipidemia, unspecified; Z85.46 Personal history of malignant neoplasm of prostate; I10 Essential (primary) hypertension; E11.9 Type 2 diabetes mellitus without complications; N35.819 Other urethral stricture, male, unspecified site; N39.41 Urge incontinence; Z90.79 Acquired absence of other genital organ(s); G47.33 Obstructive sleep apnea (adult) (pediatric)
CPT/HCPCS: 52356; 36415; 74420; 76000; 80048; 82948; 85025; J0690; J1100; J1171; J2405; J2704; J3010